=== PATIENT | female | born 1990 | race Caucasian/White ===

== ENCOUNTER 2016-11-28 16:21 | Emergency (ER) | payer OTHER ==
[~2016-11-28] VITALS: Ht 167.6 cm; Wt 87.5 kg
[~2016-11-28 16:21] MED LIST: ALPRAZOLAM1 MG PO; KLONOPIN1 MG PO; QUETIAPINE FUM200 MG PO; [UNRECOGNIZED DRUG - REMARK] PO
[2016-11-28 19:04] LABS: HEMATOCRIT 40.6 % (36.0-46.0); MCH 31.1 PG (29.0-34.0); MCV 86.6 FL (83-99); MEAN PLAT.VOLUME 10.3 uM^3 (9.5-12.4); PLATELET COUNT 251 K/uL (156-360); RBC DIS.WIDTH-SD 36.8 % (39-53); RED BLOOD COUNT 4.69 M/uL (3.80-5.20); WHITE BLOOD COUNT 9.5 K/uL (4.1-10.2)
[2016-11-28 19:19] LABS: CHLORIDE 107 mEq/L (99-109); POTASSIUM 3.8 mEq/L (3.7-5.4); SODIUM 138 mEq/L (136-147)
[2016-11-28 19:21] LABS: GLUCOSE 105 mg/dL (70-99)
[2016-11-28 19:22] LABS: ANION GAP 8 MEQ/L (2-14)
[2016-11-28 19:23] LABS: TOTAL BILIRUBIN 0.5 mg/dL (0.0-1.0)
[2016-11-28 19:25] LABS: ALKALINE PHOSPHATASE 53 IU/L (3-129); GFR ESTIMATE (CALCULATED) > 59 mL/min/
[2016-11-28 19:26] LABS: UREA NITROGEN (BUN) 8 mg/dL (9-23)
[2016-11-28 19:28] LABS: LIPASE 27 U/L (1.0-51.0)
[2016-11-28 19:34] LABS: QUANTITATIVE HCG < 4.0 MIU/ML
[2016-11-28 19:37] LABS: ADD MIUA? NO; BILIRUBIN NEGATIVE; BLOOD NEGATIVE; COLOR YELLOW ((YELLOW)); GLUCOSE (STRIP) NEGATIVE; KETONES TRACE; LEUKOCYTES NEGATIVE; NITRITE NEGATIVE; PROTEIN (STRIP) NEGATIVE; UCUL ADDED? NO
[2016-11-28] MEDS ORDERED: ULTRAM50 MG PO (20:16)
[2016-11-28] MEDS ORDERED: PREDNISONE10 MG PO (20:16)
[2016-11-28] MEDS ORDERED: FLEXERIL10 MG PO (20:16)
[2016-11-28 20:34] VITALS: BP 128/85
== END 2016-11-28 20:35 | disposition home or self-care (01) ==
LOC: EME 16:21
PROVIDERS: Physician Assistant
DX: M54.5 Low back pain (principal); R10.9 Unspecified abdominal pain; E03.9 Hypothyroidism, unspecified; F17.200 Nicotine dependence, unspecified, uncomplicated; Z88.1 Allergy status to other antibiotic agents
CPT/HCPCS: 74176; 80053; 81003; 83690; 84702; 85027; 99281; 99284; J1885; J3010

== ENCOUNTER 2016-12-02 22:20 | Emergency (ER) | payer OTHER ==
[~2016-12-02] VITALS: Ht 167.6 cm; Wt 908.0 kg
[~2016-12-02 22:20] MED LIST changes: +FLEXERIL10 MG PO; +PREDNISONE10 MG PO; +ULTRAM50 MG PO
[2016-12-03] MEDS ORDERED: VALIUM5 MG PO (00:37)
[2016-12-03] MEDS ORDERED: PERCOCET 5/31 TABLET PO (00:37)
[2016-12-03 01:02] VITALS: BP 138/94
== END 2016-12-03 01:02 | disposition home or self-care (01) ==
LOC: EME 22:20 → RME 22:20
DX: M54.5 Low back pain (principal); Z88.1 Allergy status to other antibiotic agents
CPT/HCPCS: 99281; 99284; J1170

== ENCOUNTER 2016-12-24 14:11 | Inpatient (IN) | payer OTHER ==
[~2016-12-24] VITALS: Ht 167.6 cm; Wt 89.8 kg
[2016-12-24 04:00] VITALS: BP 107/68
[~2016-12-24 14:11] MED LIST changes: +PERCOCET 5/31 TABLET PO; +VALIUM5 MG PO
[2016-12-24] MEDS ORDERED: OXYCODONE-APAP1 EAC6 PO (14:19)
[2016-12-24] MEDS ORDERED: QUETIAPINE FUM100 MG PO (14:20)
[2016-12-24] MEDS ORDERED: ALPRAZOLAM2 MG PO (14:20)
[2016-12-24] MEDS ORDERED: LEVOTHYROXINE75 MCG PO (14:21)
[2016-12-24] MEDS ORDERED: TIZANIDINE HCL4 MG PO (14:21)
[2016-12-24] MEDS ORDERED: GABAPENTIN300 MG PO (14:22)
[2016-12-24 17:00] LABS: HEMATOCRIT 40.7 % (36.0-46.0); MCH 31.2 PG (29.0-34.0); MCHC 34.9 G/DL (30.0-36.0); MCV 89.5 FL (83-99); MEAN PLAT.VOLUME 9.9 uM^3 (9.5-12.4); PLATELET COUNT 232 K/uL (156-360); RBC DIS.WIDTH-CV 11.9 % (11.8-14.6); RBC DIS.WIDTH-SD 38.1 % (39-53); RED BLOOD COUNT 4.55 M/uL (3.80-5.20); WHITE BLOOD COUNT 7.3 K/uL (4.1-10.2)
[2016-12-24 17:08] LABS: CHLORIDE 109 mEq/L (99-109); POTASSIUM 3.8 mEq/L (3.7-5.4); SODIUM 143 mEq/L (136-147)
[2016-12-24 17:10] LABS: GLUCOSE 79 mg/dL (70-99)
[2016-12-24 17:11] LABS: ANION GAP 11 MEQ/L (2-14)
[2016-12-24 17:12] LABS: TOTAL BILIRUBIN 0.7 mg/dL (0.0-1.0)
[2016-12-24 17:14] LABS: ALKALINE PHOSPHATASE 61 IU/L (3-129); GFR ESTIMATE (CALCULATED) > 59 mL/min/
[2016-12-24 17:15] LABS: UREA NITROGEN (BUN) 7 mg/dL (9-23)
[2016-12-24 17:32] LABS: ADD MIUA? NO; BILIRUBIN NEGATIVE; BLOOD NEGATIVE; COLOR YELLOW ((YELLOW)); GLUCOSE (STRIP) NEGATIVE; KETONES NEGATIVE; LEUKOCYTES NEGATIVE; NITRITE NEGATIVE; PROTEIN (STRIP) NEGATIVE; SPECIFIC GRAVITY 1.007 (1.000-1.030); UCUL ADDED? NO
[2016-12-24] MEDS ORDERED: ORSYTHIA1 EACH PO (19:31)
[2016-12-24] MEDS ORDERED: CLONIDINE HCL0.2 MG PO (19:32)
[2016-12-24] MEDS ORDERED: NICOTINE PATCH1 EAC2 TD (19:33)
[2016-12-24] MEDS ORDERED: DIAZEPAM5 MG PO (19:33)
[2016-12-24] MEDS ORDERED: FLONASE16 G1 BOTH NARES (19:34)
[2016-12-24 22:19] VITALS: BP 132/84
[2016-12-24 23:47] VITALS: BP 131/89
[2016-12-25 06:15] LABS: HEMATOCRIT 36.6 % (36.0-46.0); MCH 30.9 PG (29.0-34.0); MCHC 34.2 G/DL (30.0-36.0); MCV 90.6 FL (83-99); MEAN PLAT.VOLUME 9.9 uM^3 (9.5-12.4); PLATELET COUNT 216 K/uL (156-360); RBC DIS.WIDTH-CV 12.3 % (11.8-14.6); RBC DIS.WIDTH-SD 40.3 % (39-53); RED BLOOD COUNT 4.04 M/uL (3.80-5.20); WHITE BLOOD COUNT 6.5 K/uL (4.1-10.2)
[2016-12-25 06:38] LABS: ANION GAP 9 MEQ/L (2-14); CHLORIDE 106 MEQ/L (99-109); GFR ESTIMATE (CALCULATED) > 59 mL/min/; POTASSIUM 3.8 MEQ/L (3.7-5.4); SAMPLE HEMOLYSIS CHECK 0; SAMPLE ICTERIC CHECK 0; SAMPLE LIPEMIA CHECK 0; SODIUM 139 MEQ/L (136-147); UREA NITROGEN (BUN) 11 mg/dL (9-23)
[2016-12-25 06:41] LABS: GLUCOSE 107 mg/dL (70-99)
[2016-12-25 08:00] VITALS: BP 111/64
[2016-12-25 16:00] VITALS: BP 142/98
[2016-12-25 20:59] VITALS: BP 120/72
[2016-12-25 23:54] VITALS: BP 110/56
[2016-12-26 03:46] VITALS: BP 108/59
[2016-12-26 07:38] VITALS: BP 100/51
[2016-12-26 11:47] VITALS: BP 135/61
[2016-12-26 16:11] VITALS: BP 122/77
[2016-12-26 19:32] VITALS: BP 124/66
[2016-12-26 23:39] VITALS: BP 123/79
[2016-12-27 03:56] VITALS: BP 100/58
[2016-12-27 08:00] VITALS: BP 99/55
[2016-12-27 12:52] LABS: QUANTITATIVE HCG < 4.0 MIU/ML
[2016-12-27 15:10] VITALS: BP 139/76
[2016-12-27 23:17] VITALS: BP 128/80
[2016-12-28 08:00] VITALS: BP 118/71
[2016-12-28 11:55] VITALS: BP 109/60
[2016-12-28 16:40] VITALS: BP 138/84
[2016-12-28 19:46] VITALS: BP 122/71
[2016-12-28 23:50] VITALS: BP 122/76
[2016-12-29 03:32] VITALS: BP 105/58
[2016-12-29 07:00] VITALS: BP 109/56
[2016-12-29 18:04] VITALS: BP 118/76
[2016-12-29 19:20] VITALS: BP 112/61
[2016-12-30 00:26] VITALS: BP 120/76
[2016-12-30 08:00] VITALS: BP 81/48
[2016-12-30] MEDS ORDERED: GABAPENTIN400 MG PO (12:10)
[2016-12-30] MEDS ORDERED: QUETIAPINE FUM100 MG PO (12:10)
[2016-12-30] MEDS ORDERED: OXYCODONE-APAP1 EACH PO (12:10)
[2016-12-30 13:25] VITALS: BP 80/60
== END 2016-12-30 16:20 | disposition home or self-care (01) | DRG 552 ==
LOC: EME → EDBD 14:11 → EME 14:11 → 5WEST 20:55 → EDOF 20:55 → 5WEST 22:04 → 2EAST 12-25 14:45 → 5WEST 12-25 14:45 → 2EAST 12-25 21:33
PROVIDERS: Hospitalist; Nurse Practitioner Family
DX: M51.17 Intervertebral disc disorders with radiculopathy, lumbosacral region (principal); M48.07 Spinal stenosis, lumbosacral region; M62.830 Muscle spasm of back; R26.2 Difficulty in walking, not elsewhere classified; G89.29 Other chronic pain; K59.00 Constipation, unspecified; E03.9 Hypothyroidism, unspecified; F17.210 Nicotine dependence, cigarettes, uncomplicated; F41.9 Anxiety disorder, unspecified; E66.9 Obesity, unspecified; Z68.31 Body mass index [BMI] 31.0-31.9, adult
CPT/HCPCS: 72148; 72195; 72202; 73502; 80048; 80053; 81003; 84702; 85027; 86140; 99281; 99284; G0378; J1030; J1170; J1650; J1885; J2270; J3010; J3360